=== PATIENT | male | born 1980 | race Two or more races ===

== ENCOUNTER 2017-05-15 12:29 | Inpatient (IN) | payer OTHER ==
[2017-05-15 14:08] VITALS: BMI 32.1
--- NOTE | 2017-05-15 15:35 | HP ---
COWS - Scale Resting Pulse: 0= OR 80 or Below Sweatin=Flushed/Facial Moisture Restless Observation: 3= Extraneous Movement Pupil Size: 2= Moderately Dilated Bone or Joint Aches: 2= Severe Diffuse Aches Runny Nose/ Eye Tearin= Runny Nose/Eyes GI Upset > 30mins: 3= Vomiting/Diarrhea Tremor Observation: 2= Slight Tremor Visible Yawning Observation: 2= >3x During Session Anxiety or Irritability: 2=Irritable/Anxious Goose Flesh Skin: 0=Smooth Skin COWS Score: 20 CIWA Score - CIWA Score Nausea/Vomitin Muscle Tremors: 3 Anxiety: 3 Agitation: 3 Paroxysmal Sweats: 2 Orientation: 0-Oriented Tacttile Disturbances: 2-Mild Itch/Numbness/Burn Auditory Disturbances: 2-Mild Harshness/Frighten Visual Disturbances: 2-Mild Sensitivity Headache: 2-Mild CIWA-Ar Total Score: 22 Admission ROS BHS - HPI Chief Complaint: i need help to stop using heroin History of Present Illness: this 36 years old male with heroin and marijuana dependence withdrawal symptom, never been in detox before hearing loss both ears sleep apnea depression Exam Limitations: No Limitations - Ebola screening Have you traveled outside of the country in the last 21 days: No Have you had contact with anyone from an Ebola affected area: No Have you been sick,other than usual withdrawal symptoms: No - Review of Systems Constitutional: Chills, Diaphoresis, Loss of Appetite, Malaise, Night Sweats, Changes in sleep, Weakness EENT: reports: Tearing, Nose Congestion Respiratory: reports: No Symptoms reported Cardiac: reports: No Symptoms Reported GI: reports: Diarrhea, Nausea, Vomiting, Abdominal cramping : reports: No Symptoms Reported Musculoskeletal: reports: Back Pain, Joint Pain, Muscle Pain, Joint Stiffness Integumentary: reports: Dryness Neuro: reports: Headache, Tremors Endocrine: reports: No Symptoms Reported, See HPI, Excessive Sweating, Flushing Hematology: reports: No Symptoms Reported Psychiatric: reports: Judgement Intact, Mood/Affect Appropiate, Depressed Patient History - Patient Medical History Hx Anemia: No Hx Asthma: No Hx Chronic Obstructive Pulmonary Disease (COPD): No Hx Cancer: No Hx Cardiac Disorders: No Hx Congestive Heart Failure: No Hx Hypertension: No Hx Hypercholesterolemia: No Hx Pacemaker: No HX Cerebrovascular Accident: No Hx Seizures: No Hx Dementia: No Hx Diabetes: No Hx Gastrointestinal Disorders: No Hx Liver Disease: No Hx Genitourinary Disorders: No Hx Sexually Transmitted Disorders: No Hx Renal Disease (ESRD): No Hx Thyroid Disease: No Hx Human Immunodeficiency Virus (HIV): No (12/13) Hx Hepatitis C: No Hx Depression: Yes Hx Suicide Attempt: No Hx Bipolar Disorder: No Other Medical History: no suicidal,no homicidal,fx of right leg,lt knee,left elbow ,right forearm - Patient Surgical History Other Surgical History: tonsillectomy and adenoidectome at age of 12 - PPD History Previous Implant?: Yes Documented Results: Negative w/o proof Implanted On Prior [facility] Admission?: No PPD to be Administered?: Yes - Smoking Cessation Smoking history: Current every day smoker Have you smoked in the past 12 months: Yes Aproximately how many cigarettes per day: 20 Cigars Per Day: 0 Hx Chewing Tobacco Use: No Initiated information on smoking cessation: Yes 'Breaking Loose' booklet given: 05/15/17 - Substance & Tx. History Hx Alcohol Use: No Hx Substance Use: Yes Substance Use Type: Heroin, Marijuana Family Disease History - Family Disease History Family History: Denies Admission Physical Exam S - Vital Signs Vital Signs: Vital Signs - 24 hr 05/15/17 14:05 Temperature 98.3 F Pulse Rate 66 Respiratory 20 Rate Blood Pressure 141/90 - Physical General Appearance: Yes: Moderate Distress, Tremorous, Irritable, Sweating, Anxious HEENTM: Yes: Normocephalic, JOSE, Pharynx Normal Respiratory: Yes: Lungs Clear, Normal Breath Sounds, No Respiratory Distress Neck: Yes: Supple, Trachea in good position Breast: Yes: Within Normal Limits Cardiology: Yes: Within Normal Limits, Regular Rhythm, Regular Rate, S1, S2 Abdominal: Yes: Within Normal Limits, Normal Bowel Sounds, Non Tender, Flat, Soft Genitourinary: Yes: Within Normal Limits Back: Yes: Normal Inspection, Muscle Spasm Musculoskeletal: Yes: Back pain, Joint Stiffness, Muscle Pain, Other ( limitation of left elbow movement) Extremities: Yes: Tremors Neurological: Yes: java j2ee architect II-XII NML intact, Fully Oriented, Alert, Motor Strength 5/5 Integumentary: Yes: Dry Lymphatic: Yes: Within Normal Limits - Diagnostic (1) Opioid dependence with withdrawal Current Visit: Yes Status: Acute (2) Cannabis dependence Current Visit: Yes Status: Acute (3) [place] (hard of hearing) Current Visit: Yes Status: Acute (4) Nicotine dependence Current Visit: Yes Status: Acute (5) Depression Current Visit: Yes Status: Acute (6) History of tonsillectomy Current Visit: Yes Status: Acute (7) History of adenoidectomy Current Visit: Yes Status: Acute Cleared for Admission [facility] - Detox or Rehab [facility] Level of Care: Medically Managed Detox Regimen/Protocol: Methadone [facility] Breath Alcohol Content Breath Alcohol Content: 0 Urine Drug Screen - Results Drug Screen Negative: No Urine Drug Screen Results: THC-Marijuana, OPI-Opiates
[2017-05-15] MEDS ORDERED: MAG HYDROX/AL HYDROX/SIMETH 30 ML UNIT-DOSE CUP PO PRN (15:53)
[2017-05-15] MEDS ORDERED: MAGNESIUM CITRATE 300 ML BOTTLE PO PRN (15:53)
[2017-05-15] MEDS ORDERED: LOPERAMIDE HCL 2 MG CAPSULE PO PRN (15:53)
[2017-05-15] MEDS ORDERED: guaiFENesin/D-METHORPHAN HB 10 ML UNIT-DOSE CUPS PO PRN (15:53)
[2017-05-15] MEDS ORDERED: MAGNESIUM HYDROX 2400MG/30ML ORAL SUSPENSION 30 ML CUP PO PRN (15:53)
[2017-05-15] MEDS ORDERED: hydrOXYzine PAMOATE 50 MG CAPSULE (FP) PO PRN (15:53)
[2017-05-15] MEDS ORDERED: MENTHOL/PHENOL 1 EACH UD MM PRN (15:53)
[2017-05-15] MEDS ORDERED: P-EPHED 60MG/TRIPROLIDI 2.5MG TABLET PO PRN (15:53)
[2017-05-15] MEDS ORDERED: ACETAMINOPHEN 325 MG TABLET (FP) PO PRN (15:53)
[2017-05-15] MEDS ORDERED: IBUPROFEN 400 MG TABLET (FP) PO PRN (15:53)
[2017-05-15] MEDS ORDERED: diphenhydrAMINE HCL 50 MG CAPSULE PO PRN (15:53)
[2017-05-15] MEDS ORDERED: CYCLOBENZAPRINE HCL 10 MG TABLET (FP) PO PRN (15:56)
[2017-05-15] MEDS ORDERED: METHADONE HCL 10 MG TABLET (FOR DETOX USE ONLY) PO ONE ×2 (16:30→23:00)
[2017-05-15] MEDS ORDERED: METHADONE HCL 10 MG TABLET (FOR DETOX USE ONLY) ONE (19:12)
[2017-05-15] MEDS: diazePAM 5 MG TABLET PO PRN (19:18)
[2017-05-15] MEDS: cloNIDine HCL 0.1 MG TABLET PO SCH (22:54)
[2017-05-15] MEDS: THIAMINE HCL 100 MG TABLET (FP) PO SCH (22:54)
[2017-05-15 23:19] LABS: URINE APPEARANCE CLEAR; URINE BILIRUBIN NEGATIVE (NEGATIVE); URINE BLOOD NEGATIVE (NEGATIVE); URINE COLOR YELLOW; URINE GLUCOSE (UA) NEGATIVE (NEGATIVE); URINE KETONE NEGATIVE (NEGATIVE); URINE LEUK ESTERASE NEGATIVE (NEGATIVE); URINE NITRITE NEGATIVE (NEGATIVE); URINE PROTEIN NEGATIVE (NEGATIVE); URINE UROBILINOGEN NEGATIVE E.U./dl (0.2-1.0)
[2017-05-16 09:45] LABS: MCH 29.9 pg (25.7-33.7); MCHC 33.4 g/dl (32.0-35.9); MEAN CELL VOLUME 89.5 fl (80-96); PLATELET COUNT 324 K/MM3 (134-434); RDW 13.5 % (11.9-15.9); WHITE BLOOD COUNT 10.5 K/mm3 (4.0-10.0)
[2017-05-16] MEDS ORDERED: METHADONE HCL 10 MG TABLET (FOR DETOX USE ONLY) PO ONE ×2 (10:00→14:33)
[2017-05-16 10:06] LABS: ALBUMIN 3.9 g/dl (3.4-5.0); ALK PHOS 115 U/L (45-117); ANION GAP 7 (8-16); BILIRUBIN,TOTAL 0.6 mg/dL (0.2-1.0); CALCIUM 8.9 mg/dL (8.5-10.1); CO2 30 mmol/L (21-32); GLUCOSE,RANDOM 96 mg/dL (74-106); SGOT/AST 19 U/L (15-37); SGPT/ALT 28 U/L (12-78); TOT PROT 7.1 g/dl (6.4-8.2)
--- NOTE | 2017-05-16 10:32 | CONSULT ---
[facility] Psychiatric Consult - Data Date of interview: 05/16/17 Admission source: [facility] Identifying data: This is 36 years old male wity no psychiatric hospiotalization history intoxicated with: Opioids, Cannabis and Nicotine Substance Abuse History: - Smoking Cessation. Smoking history: Current every day smoker. Have you smoked in the past 12 months: Yes. Aproximately how many cigarettes per day: 20. Cigars Per Day: 0. Hx Chewing Tobacco Use: No. Initiated information on smoking cessation: Yes. 'Breaking Loose' booklet given : 05/15/17. - Substance & Tx. History. Hx Alcohol Use: No. Hx Substance Use: Yes. Substance Use Type: Heroin, Marijuana Medical History: Hearing problema unmclear Psychiatric History: Denies past psychioatric issues Physical/Sexual Abuse/Trauma History: Denies Additional Comment: Observation. Detox Unit Care Prptpcol Mental Status Exam - Mental Status Exam Alert and Oriented to: Person Cognitive Function: Fair Patient Appearance: Well Groomed Mood: Sad Affect: Flat Patient Behavior: Sedated Speech Pattern: Delayed Voice Loudness: Mildly Soft/Quiet Thought Process: Circumstantial Thought Disorder: Being Controlled Hallucinations: Denies Suicidal Ideation: Denies Homicidal Ideation: Denies Insight/Judgement: Fair Sleep: Difficulty falling asleep Appetite: Weight gain Muscle strength/Tone: Mild Hypotonicity Gait/Station: Shuffling Additional Comments: Observation. Detox Unit Care [facility]ptpcol Psychiatric Findings - Problem List ([place] 1, 2,3) (1) Cannabis dependence Current Visit: Yes Status: Acute (2) Nicotine dependence Current Visit: Yes Status: Acute (3) Opioid dependence with withdrawal Current Visit: Yes Status: Acute (4) Drug-induced mood disorder Current Visit: Yes Status: Acute - Initial Treatment Plan Initial Treatment Plan: Observation. Detox Unit Care Prptpcol
[2017-05-16] MEDS: PRENATAL VITAMINS W/ FOLIC ACID TABLET (FP) PO SCH (11:15)
[2017-05-16] MEDS: cloNIDine HCL 0.1 MG TABLET PO SCH ×2 (11:15→22:42)
--- NOTE | 2017-05-16 12:24 | PN ---
S COWS - Scale Resting Pulse: 1= [place] 81-100 Sweatin= Chills/Flushing Restless Observation: 3= Extraneous Movement Pupil Size: 2= Moderately Dilated Bone or Joint Aches: 4=Acute Joint/Muscle Pain Runny Nose/ Eye Tearin= Nasal Congestion GI Upset > 30mins: 0= None Tremor Observation of Outstretched Hands: 1= Tremor [place], Not Seen Yawning Observation: 1= 1-2x During Session Anxiety or Irritability: 2=Irritable/Anxious Goose Flesh Skin: 0=Smooth Skin COWS Score: 16 BHS Progress Note (SOAP) Subjective: ANXIETY,TREMORS, SWEATS, IRRITABILITY,INTERMITTENT SLEEP Objective: 05/16/17 12:24 Vital Signs Temperature 97.4 F L 05/16/17 09:46 Pulse Rate 64 05/16/17 09:46 Respiratory Rate 18 05/16/17 09:46 Blood Pressure 125/75 05/16/17 09:46 O2 Sat by Pulse Oximetry (%) Laboratory Last Values WBC 10.5 K/mm3 (4.0-10.0) H 05/16/17 06:00 RBC 5.01 M/mm3 (4.00-5.60) 05/16/17 06:00 Hgb 15.0 GM/dL (11.7-16.9) 05/16/17 06:00 Hct 44.8 % (35.4-49) 05/16/17 06:00 MCV 89.5 fl (80-96) 05/16/17 06:00 MCHC 33.4 g/dl (32.0-35.9) 05/16/17 06:00 RDW 13.5 % (11.9-15.9) 05/16/17 06:00 Plt Count 324 K/MM3 (134-434) 05/16/17 06:00 MPV 9.0 fl (7.5-11.1) 05/16/17 06:00 Sodium 141 mmol/L (136-145) 05/16/17 06:00 Potassium 4.6 mmol/L (3.5-5.1) 05/16/17 06:00 Chloride 104 mmol/L (98-107) 05/16/17 06:00 Carbon Dioxide 30 mmol/L (21-32) 05/16/17 06:00 Anion Gap 7 (8-16) L 05/16/17 06:00 BUN 16 mg/dL (7-18) 05/16/17 06:00 Creatinine 1.0 mg/dL (0.7-1.3) 05/16/17 06:00 Creat Clearance w eGFR > 60 (>60) 05/16/17 06:00 Random Glucose 96 mg/dL (74-106) 05/16/17 06:00 Calcium 8.9 mg/dL (8.5-10.1) 05/16/17 06:00 Total Bilirubin 0.6 mg/dL (0.2-1.0) 05/16/17 06:00 AST 19 U/L (15-37) 05/16/17 06:00 ALT 28 U/L (12-78) 05/16/17 06:00 Alkaline Phosphatase 115 U/L (45-117) 05/16/17 06:00 Total Protein 7.1 g/dl (6.4-8.2) 05/16/17 06:00 Albumin 3.9 g/dl (3.4-5.0) 05/16/17 06:00 Urine Color Yellow 05/15/17 23:05 Urine Appearance Clear 05/15/17 23:05 Urine pH 6.0 (5.0-8.0) 05/15/17 23:05 Ur Specific [place] >= 1.030 (1.005-1.025) H 05/15/17 23:05 Urine Protein Negative (NEGATIVE) 05/15/17 23:05 Urine Glucose (UA) Negative (NEGATIVE) 05/15/17 23:05 Urine Ketones Negative (NEGATIVE) 05/15/17 23:05 Urine Blood Negative (NEGATIVE) 05/15/17 23:05 Urine Nitrite Negative (NEGATIVE) 05/15/17 23:05 Urine Bilirubin Negative (NEGATIVE) 05/15/17 23:05 Urine Urobilinogen Negative E.U./dl (0.2-1.0) 05/15/17 23:05 Ur Leukocyte Esterase Negative (NEGATIVE) 05/15/17 23:05 Assessment: 05/16/17 12:24 WITHDRAWAL SX Plan: CONTINUE DETOX
[2017-05-16] MEDS: CYCLOBENZAPRINE HCL 10 MG TABLET (FP) PO SCH ×2 (13:55→22:42)
[2017-05-16] MEDS ORDERED: METHADONE HCL 10 MG TABLET PO ONE (14:18)
--- NOTE | 2017-05-16 14:47 | EKG ---
Test Reason : Blood Pressure : / mmHG Vent. Rate : 058 BPM Atrial Rate : 058 BPM P-R Int : 148 ms QRS Dur : 092 ms QT Int : 440 ms P-R-T Axes : 014 -07 027 degrees QTc Int : 431 ms SINUS BRADYCARDIA OTHERWISE NORMAL ECG NO PREVIOUS ECGS AVAILABLE Confirmed by DAWNA ALONSO MD ([id number]) on 05/16/2017 2:47:12 PM Referred By: Confirmed By:DAWNA ALONSO MD
[2017-05-16] MEDS: diazePAM 5 MG TABLET PO PRN (22:42)
[2017-05-16] MEDS: THIAMINE HCL 100 MG TABLET (FP) PO SCH (22:42)
[2017-05-17] MEDS: CYCLOBENZAPRINE HCL 10 MG TABLET (FP) PO SCH (05:27)
[2017-05-17] MEDS: diazePAM 5 MG TABLET PO PRN (05:27)
[2017-05-17 09:39] VITALS: BP 141/82; PULSE 92; TEMP 98.8
[2017-05-17] MEDS ORDERED: METHADONE HCL 5 MG TABLET (FOR DETOX USE ONLY) PO ONE (10:00)
[2017-05-17] MEDS: PRENATAL VITAMINS W/ FOLIC ACID TABLET (FP) PO SCH (10:41)
[2017-05-17] MEDS: cloNIDine HCL 0.1 MG TABLET PO SCH (10:41)
--- NOTE | 2017-05-17 11:11 | DS ---
[facility] Detox Discharge Summary Admission Date: 05/15/17 Discharge Date: 05/17/17 - History Present History: Cannabis Dependence, Opioid Dependence Additional Comments: PT DECLINED TO CONTINUE WITH DETOX. NURSE REPORTS PATIENT HAS BEEN SPITTING OUT HIS METHADONE DOSE AND SAYS HE DOES NOT WANT IT. Pertinent Past History: S/P TOSILLECTOMY S/P ADENOIDECTOMY HARD OF HEARING DEPRESSION - Physical Exam Results Vital Signs: Vital Signs Temperature 98.8 F 05/17/17 09:38 Pulse Rate 92 H 05/17/17 09:38 Respiratory Rate 18 05/17/17 09:38 Blood Pressure 141/82 05/17/17 09:38 O2 Sat by Pulse Oximetry (%) Pertinent Admission Physical Exam Findings: WITHDRAWAL SX - Treatment Hospital Course: Discharged Condition Good - Medication Discharge Medications: Ambulatory Orders NK [No Known Home Medication] 05/15/17 - Diagnosis (1) Cannabis dependence Status: Acute (2) Drug-induced mood disorder Status: Acute (3) [place] (hard of hearing) Status: Chronic Qualifiers: Hearing loss type: unspecified (4) History of adenoidectomy Status: Chronic (5) History of tonsillectomy Status: Chronic (6) Nicotine dependence Status: Acute Qualifiers: Nicotine product type: cigarettes Substance use status: in withdrawal Qualified Code(s): F17.213 - Nicotine dependence, cigarettes, with withdrawal (7) Opioid dependence with withdrawal Status: Acute - AMA Did Patient Leave Against Medical Advice: Yes (AMA)
[2017-05-18] MEDS ORDERED: METHADONE HCL 5 MG TABLET (FOR DETOX USE ONLY) PO ONE (10:00)
[2017-05-19] MEDS ORDERED: METHADONE HCL 10 MG TABLET (FOR DETOX USE ONLY) PO ONE (10:00)
[2017-05-20] MEDS ORDERED: METHADONE HCL 5 MG TABLET (FOR DETOX USE ONLY) PO ONE (06:00)
== END 2017-05-17 11:31 | disposition left against medical advice (07) | DRG 770 ==
LOC: YASAS 12:29 → Y3N 16:02
PROVIDERS: ADMIT Internal Medicine; ATTEND Internal Medicine
PROC: HZ2ZZZZ Detoxification Services for Substance Abuse Treatment (ICD-10-PCS; principal; 2017-05-15)
DX: F11.23 Opioid dependence with withdrawal (principal); F12.20 Cannabis dependence, uncomplicated; F17.213 Nicotine dependence, cigarettes, with withdrawal; F19.20 Other psychoactive substance dependence, uncomplicated; F32.9 Major depressive disorder, single episode, unspecified; H91.90 Unspecified hearing loss, unspecified ear
CPT/HCPCS: 36415; 80053; 81003; 85027; 86593; 93005; 93010